=== PATIENT | male | born 1985 | race Two or more races ===

== ENCOUNTER 2024-04-09 08:27 | Day surgery (SDC) | payer MEDICAID ==
[2024-04-06 10:58] LABS: Basophils # (auto) 0.1 10 ^3/uL (0-0.2); Basophils % (auto) 1.1 % (0.0-2.0); Eosinophils # (auto) 0.2 10 ^3/uL (0-0.8); Eosinophils % (auto) 4.1 % (0.0-7.0); Hematocrit 44.6 % (41.0-53.0); Hemoglobin 14.9 g/dL (13.5-17.5); Lymphocytes # (auto) 1.9 10 ^3/uL (0.4-5.4); Lymphocytes % (auto) 32.7 % (10.0-50.0); Mean Corpuscular Hgb Conc. 33.5 g/dL (32.0-36.0); Mean Corpuscular Volume 86.6 fL (80.0-100.0); Monocytes # (auto) 0.4 10 ^3/uL (0-1.3); Monocytes % (auto) 7.7 % (0.0-12.0); Neutrophils # (auto) 3.1 10 ^3/uL (1.6-8.6); Neutrophils % (auto) 54.4 % (37.0-80.0); Nucleated Red Blood Cells % 0.1 %; Platelet Count (auto) 278 10^3/uL (140-450); Red Blood Cells 5.15 10^6/uL (4.5-5.90); Red Cell Distribution Width 14.3 % (11.8-14.3); White Blood Cell 5.8 10^3/uL (4.4-10.8)
[2024-04-06 11:13] LABS: INR 0.97 (0.9-1.15); Partial Thromboplastin Time 27.3 SEC (24.5-34.5); Prothrombin Time 10.3 sec (9.3-11.8)
[2024-04-06 11:31] LABS: Alanine Aminotransferase 27 U/L (7-40); Alkaline Phosphatase 57 U/L (46-116); Anion Gap 7 (5-15); Aspartate Aminotransferase 17 U/L (13-40); BUN/Creatinine Ratio 14.1 (10.0-20.0); Blood Urea Nitrogen 14 mg/dL (9-23); Calcium 10.3 mg/dL (8.7-10.4); Carbon Dioxide 29 mmol/L (20-31); Chloride 103 mmol/L (98-107); Glucose 103 mg/dL (74-106); Potassium 4.5 mmol/L (3.5-5.1); Sodium 139 mmol/L (136-145)
[2024-04-06 11:32] LABS: Bilirubin, Total 0.5 mg/dL (0.2-1.0)
[~2024-04-09] VITALS: Ht 167.6 cm; Wt 94.8 kg
[2024-04-09] MEDS: MIDAZOLAM HCL 2MG/2ML 2ml VIAL (1mg/ml) ONE (09:58)
[2024-04-09] MEDS: fentaNYL CITRATE 100 MCG/2 ML VL ONE (09:58)
[2024-04-09] MEDS: diphenhdrAMINE HCL 50 MG/1 ML VL ONE (10:04)
--- NOTE | 2024-04-09 10:19 | DVHNC2 ---
Procedure - DATE OF PROCEDURE: April 09, 2024 SURGEON: TERESITA BROWN MD REFERRING PROVIDER: Dr.Rainier CALLAHAN PROCEDURE PERFORMED: 1. Colonoscopy with moderate sedation PRE-PROCEDURE DIAGNOSIS: 1. Constipation 2. Rectal bleeding POSTPROCEDURE DIAGNOSIS: 1. Small internal hemorrhoids otherwise normal colonoscopy INDICATIONS FOR PROCEDURE: The patient is a 39-year-old male who presents for outpatient colonoscopy for chronic constipation and rectal bleeding MEDICATIONS USED: 6 mg Versed IV and 75 mcg of fentanyl IV and 25 mg Benadryl IV DETAILS OF THE PROCEDURE: Informed consent was obtained after risks, benefits, and alternatives, were discussed at length with the patient. The patient gave consent to the procedure as well as the medication used for sedation. The patient was placed in the left lateral decubitus position. Digital rectal exam showed internal hemorrhoids. An Olympus variable torsion pediatric colonoscope was inserted into the rectum and advanced to the cecum. The cecum was identified by the ileocecal valve and the appendiceal orifice. The scope was then withdrawn. The prep was good with little amounts of liquid stool. There were no large polyps, masses, strictures, or arteriovenous malformations. More than 7 minutes withdrawal time was noted. Retroflexion showed internal hemorrhoids. The patient tolerated the procedure well [place] BOWEL PREP SCORE: 9. COLONOSCOPY START TIME: 1009 CECUM TIME: 1010 COLONOSCOPY END TIME: 1017 IMPRESSION: 1. Internal hemorrhoids were otherwise normal colonoscopy 2. Rectal bleeding likely due to hemorrhoids RECOMMENDATIONS: 1. Follow up with procedure results 2. Repeat colonoscopy in 7-10 years unless otherwise indicated 3. High-fiber diet 4. Consider treatment for IBS/C versus chronic idiopathic constipation 5. Medical management of hemorrhoids I WOULD LIKE TO THANK DR. ZHANG FOR THIS REFERRAL TERESITA BROWN MD Apr 09, 2024 10:19
[2024-04-09 10:20] VITALS: RESP 11; TEMP 97.5; O2SAT 100
[2024-04-09 10:40] VITALS: BP 113/68; PULSE 60; RESP 15; O2SAT 96
== END 2024-04-09 10:54 | disposition home or self-care (01) ==
LOC: GI 08:27
PROVIDERS: ATTEND Specialist
DX: K59.00 Constipation, unspecified (principal); K62.5 Hemorrhage of anus and rectum; K64.8 Other hemorrhoids
CPT/HCPCS: 36415; 45378; 80053; 85025; 85610; 85730; J1200; J2250; J3010; 99152